=== PATIENT | male | born 1950 | race Caucasian/White ===

== ENCOUNTER 2018-11-01 11:12 | Outpatient (CLI) | payer MEDICARE, BC ==
[2018-11-01 12:14] LABS: BASOPHILS # (AUTO) 0.03 x10^3/uL (0-0.1); BASOPHILS % (AUTO) 0 % (0-1); EOSINOPHILS # (AUTO) 0.24 x10^3/uL (0-0.4); EOSINOPHILS % (AUTO) 4 % (1-7); LYMPHOCYTES # (AUTO) 1.81 x10^3/uL (1-3.4); LYMPHOCYTES % (AUTO) 29 % (22-44); MD NO; MEAN CORPUSCULAR HEMOGLOBIN 33.6 pg (27.5-34.5); MEAN CORPUSCULAR HGB CONC 34.2 g/dL (33.2-36.2); MEAN CORPUSCULAR VOLUME 98.1 fL (81-97); MEAN PLATELET VOLUME 7.5 fL (7.4-10.4); MONOCYTES % (AUTO) 11 % (2-9); NEUTROPHILS # (AUTO) 3.57 x10^3/uL (1.8-6.8); NEUTROPHILS % (AUTO) 56 % (42-75); PLATELET COUNT 260 x10^3/uL (130-400); RED CELL DISTRIBUTION WIDTH 16.5 % (9.4-14.8)
[2018-11-01 12:28] LABS: ALBUMIN 3.8 g/dL (3.4-5.0); CHLORIDE 109 mmol/L (98-107)
[2018-11-01 12:32] LABS: ALANINE AMINOTRANSFERASE 33 U/L (12-78); ALKALINE PHOSPHATASE 54 U/L (45-117); ANION GAP 7 mmol/L (5-15); BILIRUBIN,TOTAL 0.5 mg/dL (0.2-1.0); CALCIUM 9.4 mg/dL (8.5-10.1); CREATININE 0.73 mg/dL (0.7-1.3)
[2018-11-01] MEDS ORDERED: RIVA20TA PO (13:00)
[2018-11-01] MEDS ORDERED: LOSA1TAB19 PO (13:00)
[2018-11-01] MEDS ORDERED: CYAN10005 PO (13:00)
[2018-11-01] MEDS ORDERED: BUPR150T20 PO (13:00)
[2018-11-01] MEDS ORDERED: CPAP (13:00)
[2018-11-01] MEDS ORDERED: ALPR-475 PO (13:00)
[2018-11-01] MEDS ORDERED: UMEC1DIS INH (13:00)
[2018-11-01] MEDS ORDERED: IBUP-11 PO (13:00)
[2018-11-01] MEDS ORDERED: Nebulizer (13:00)
[2018-11-01] MEDS ORDERED: CHOL10003 PO (13:00)
[2018-11-01] MEDS ORDERED: MESA1.2T PO (13:00)
== END 2018-11-01 23:59 | disposition home or self-care (01) ==
LOC: STAR 11:12
PROVIDERS: ATTEND Thoracic Surgery (Cardiothoracic Vascular Surgery)
DX: Z01.818 Encounter for other preprocedural examination (principal); R91.8 Other nonspecific abnormal finding of lung field; R94.31 Abnormal electrocardiogram [ECG] [EKG]
CPT/HCPCS: 36415; 80053; 85025; 93005

== ENCOUNTER 2018-11-07 06:04 | Inpatient (IN) | payer MEDICARE, BC ==
[~2018-11-07] VITALS: Ht 185.4 cm; Wt 126.0 kg
[~2018-11-07 06:04] MED LIST: ALPR-475 PO; BUPR150T20 PO; CHOL10003 PO; CPAP; CYAN10005 PO; IBUP-11 PO; LOSA1TAB19 PO; MESA1.2T PO; Nebulizer; RIVA20TA PO; UMEC1DIS INH
[2018-11-07] MEDS ORDERED: LACTATED RINGERS 1,000 ML IV SCH (06:38)
[2018-11-07] MEDS ORDERED: BUPIVACAINE/PF-EPI 0.5% 1:200K ONE (06:58)
[2018-11-07] MEDS ORDERED: MIDAZOLAM 1 MG/ML, 2ML ONE (07:17)
[2018-11-07] MEDS ORDERED: ROCURONIUM 10MG/ML,5ML ONE ×2 (07:18→09:37)
[2018-11-07] MEDS ORDERED: SUCCINYLCHOLINE 20 MG/ML, 10ML ONE (07:18)
[2018-11-07] MEDS ORDERED: LIDOCAINE 2%, 6 ML JEL.PF.APP MM ONE (07:18)
[2018-11-07] MEDS ORDERED: FENTANYL PF 250 MCG/5ML ONE (07:18)
[2018-11-07] MEDS ORDERED: ONDANSETRON 2MG/ML, 2ML ONE (07:18)
[2018-11-07] MEDS ORDERED: DEXAMETHASONE 4 MG/ML, 1ML ONE (07:18)
[2018-11-07] MEDS ORDERED: SCOPOLAMINE PATCH, 1.5MG PATCH.TD72 TD ONE (07:30)
[2018-11-07] MEDS ORDERED: ACETAMINOPHEN 500 MG TABLET PO ONE (07:30)
[2018-11-07] MEDS ORDERED: GABAPENTIN 300 MG CAPSULE PO ONE (07:30)
[2018-11-07] MEDS ORDERED: PROPOFOL 10 MG/ML, 20ML ONE (07:33)
[2018-11-07] MEDS ORDERED: KETOROLAC 30 MG/1 ML ONE (07:33)
[2018-11-07] MEDS ORDERED: CEFAZOLIN 1,000 MG ONE (07:33)
[2018-11-07] MEDS ORDERED: FENTANYL PF 100 MCG/2ML ONE ×2 (08:11→10:03)
[2018-11-07] MEDS ORDERED: NEOSTIGMINE 1 MG/ML, 10ML ONE (09:38)
[2018-11-07] MEDS ORDERED: GLYCOPYRROLATE 0.2MG/1ML, 5ML ONE (09:38)
[2018-11-07] MEDS: LACTATED RINGERS 1,000 ML IV SCH ×2 (09:52→19:52)
[2018-11-07] MEDS ORDERED: ALBUTEROL SULFATE 2.5 MG/3 ML NPPB PRN (10:00)
[2018-11-07] MEDS ORDERED: HALOPERIDOL 5 MG/ML IV PRN (10:00)
[2018-11-07] MEDS ORDERED: MEPERIDINE/PF 25MG/0.5ML IVPush PRN (10:00)
[2018-11-07] MEDS ORDERED: FAMOTIDINE 20 MG/2 ML IVPush SCH (10:00)
[2018-11-07] MEDS ORDERED: PROMETHAZINE 12.5 MG SUPP PR PRN (10:00)
[2018-11-07] MEDS ORDERED: DIAZEPAM 5 MG/ML, 2ML IVPush PRN (10:00)
[2018-11-07] MEDS ORDERED: ENALAPRILAT 1.25 MG/ML, 2ML IVPush PRN (10:00)
[2018-11-07] MEDS ORDERED: HYDROmorphone 2 MG/ML, 1ML IVPush PRN (10:00)
[2018-11-07] MEDS ORDERED: hydrALAzine 20 MG/ML, 1ML IVPush PRN (10:00)
[2018-11-07] MEDS ORDERED: ONDANSETRON 2MG/ML, 2ML IV PRN (10:00)
[2018-11-07] MEDS: TEMPLATE NON-FORMULARY MED. (Umeclidinium Brm/Vilanterol Tr (Anoro Ellipta 62.5-25 Mcg Inh INH SCH (10:00)
[2018-11-07] MEDS ORDERED: DIPHENHYDRAMINE 50 MG/ML, 1ML IVPush PRN (10:00)
[2018-11-07] MEDS ORDERED: KETOROLAC 30 MG/1 ML IVPush PRN (10:00)
[2018-11-07] MEDS ORDERED: hydrALAzine 20 MG/ML, 1ML IV PRN (10:00)
[2018-11-07] MEDS ORDERED: LORazepam 1MG TABLET PO PRN (10:00)
[2018-11-07] MEDS ORDERED: ONDANSETRON ODT 8 MG PO PRN (10:00)
[2018-11-07] MEDS ORDERED: DIPHENHYDRAMINE 25 MG CAPSULE PO PRN (10:00)
[2018-11-07] MEDS ORDERED: ACETAMINOPHEN 325 MG TABLET PO PRN (10:00)
[2018-11-07] MEDS ORDERED: EPHEDRINE 50 MG/ML, 1ML IVPush PRN (10:00)
[2018-11-07] MEDS ORDERED: LABETALOL 5MG/ML, 20ML IV PRN (10:00)
[2018-11-07] MEDS ORDERED: morphine SULFATE 10 MG/ML, 1ML IVPush PRN (10:00)
[2018-11-07] MEDS ORDERED: PROMETHAZINE 25 MG/ML, 1ML IV PRN (10:00)
[2018-11-07] MEDS ORDERED: MIDAZOLAM 1 MG/ML, 2ML IV PRN (10:00)
[2018-11-07] MEDS ORDERED: OXYcodone 5 MG/5 ML ORAL.SOL UDC ONE ×2 (10:04→10:38)
[2018-11-07] MEDS: FENTANYL PF 100 MCG/2ML IV PRN ×2 (10:06→10:13)
[2018-11-07] MEDS: OXYcodone 5 MG/5 ML ORAL.SOL UDC PO PRN ×2 (10:10→10:39)
[2018-11-07] MEDS ORDERED: morphine SULFATE 10 MG/ML, 1ML ONE (10:21)
[2018-11-07] MEDS: MORPHINE SULFATE 4 MG/ML, 1ML IVPush PRN ×4 (10:23→10:49)
[2018-11-07 11:31] VITALS: BP 141/92
[2018-11-07] MEDS: FAMOTIDINE 20 MG TABLET PO SCH ×2 (11:57→20:57)
[2018-11-07 12:49] VITALS: BP 0/0
[2018-11-07] MEDS: ALBUTEROL SULFATE 2.5 MG/3 ML NPPB SCH ×2 (12:55→21:32)
[2018-11-07] MEDS: HYDROcodone/APAP 5/325 TABLET PO PRN ×3 (14:05→22:44)
[2018-11-07 19:54] VITALS: BP 124/80
[2018-11-07] MEDS: BUPROPION SR 150 MG TABLET PO SCH (20:57)
[2018-11-07] MEDS: BUDESONIDE 0.5 MG/2 ML INHA INH SCH (21:32)
[2018-11-08 00:21] VITALS: BP 130/76
[2018-11-08] MEDS: HYDROcodone/APAP 5/325 TABLET PO PRN ×5 (02:53→20:29)
[2018-11-08] MEDS: ALBUTEROL SULFATE 2.5 MG/3 ML NPPB SCH ×4 (03:00→19:23)
[2018-11-08 04:51] LABS: BASOPHILS # (AUTO) 0.02 x10^3/uL (0-0.1); BASOPHILS % (AUTO) 0 % (0-1); EOSINOPHILS # (AUTO) 0.03 x10^3/uL (0-0.4); EOSINOPHILS % (AUTO) 0 % (1-7); LYMPHOCYTES % (AUTO) 17 % (22-44); MD NO; MEAN CORPUSCULAR HEMOGLOBIN 33.4 pg (27.5-34.5); MEAN CORPUSCULAR HGB CONC 33.6 g/dL (33.2-36.2); MEAN CORPUSCULAR VOLUME 99.4 fL (81-97); MEAN PLATELET VOLUME 7.7 fL (7.4-10.4); MONOCYTES # (AUTO) 0.91 x10^3/uL (0.2-0.8); MONOCYTES % (AUTO) 10 % (2-9); NEUTROPHILS # (AUTO) 7.02 x10^3/uL (1.8-6.8); NEUTROPHILS % (AUTO) 73 % (42-75); PLATELET COUNT 218 x10^3/uL (130-400); RED CELL DISTRIBUTION WIDTH 15.6 % (9.4-14.8)
[2018-11-08 05:04] LABS: ANION GAP 7 mmol/L (5-15); CALCIUM 8.5 mg/dL (8.5-10.1); CHLORIDE 106 mmol/L (98-107)
[2018-11-08 05:07] LABS: CREATININE 0.63 mg/dL (0.7-1.3)
[2018-11-08] MEDS: BUPROPION SR 150 MG TABLET PO SCH ×2 (07:59→22:06)
[2018-11-08] MEDS: MESALAMINE 400 MG CAPSULE.DR PO SCH (07:59)
[2018-11-08] MEDS: FAMOTIDINE 20 MG TABLET PO SCH ×2 (07:59→22:06)
[2018-11-08] MEDS: ENOXAPARIN 60 MG/0.6 ML SQ SCH ×2 (08:00→22:07)
[2018-11-08] MEDS: TEMPLATE NON-FORMULARY MED. (Umeclidinium Brm/Vilanterol Tr (Anoro Ellipta 62.5-25 Mcg Inh INH SCH (08:00)
[2018-11-08 08:06] VITALS: BP 134/84
[2018-11-08] MEDS: BUDESONIDE 0.5 MG/2 ML INHA INH SCH ×2 (08:39→19:23)
[2018-11-08 12:31] VITALS: BP 114/69
[2018-11-08 20:23] VITALS: BP 124/86
[2018-11-09] MEDS: HYDROcodone/APAP 5/325 TABLET PO PRN ×3 (00:31→08:28)
[2018-11-09] MEDS: ALBUTEROL SULFATE 2.5 MG/3 ML NPPB SCH ×2 (02:00→09:25)
[2018-11-09 02:03] VITALS: BP 127/71
[2018-11-09 07:34] VITALS: BP 138/88
[2018-11-09] MEDS: BUPROPION SR 150 MG TABLET PO SCH (08:28)
[2018-11-09] MEDS: MESALAMINE 400 MG CAPSULE.DR PO SCH (08:28)
[2018-11-09] MEDS: FAMOTIDINE 20 MG TABLET PO SCH (08:28)
[2018-11-09] MEDS: ENOXAPARIN 60 MG/0.6 ML SQ SCH (08:28)
[2018-11-09] MEDS: TEMPLATE NON-FORMULARY MED. (Umeclidinium Brm/Vilanterol Tr (Anoro Ellipta 62.5-25 Mcg Inh INH SCH (08:29)
[2018-11-09] MEDS ORDERED: HYDR-3240 PO (08:55)
[2018-11-09] MEDS: BUDESONIDE 0.5 MG/2 ML INHA INH SCH (09:25)
[2018-11-09 10:02] VITALS: BP_SYST 150; BP_SYST 153; BP_DIAS 92; BP_DIAS 97
== END 2018-11-09 10:30 | disposition home or self-care (01) | DRG 164 ==
LOC: ORIP 06:04 → 4NOR 11:26
PROVIDERS: ADMIT Thoracic Surgery (Cardiothoracic Vascular Surgery); ATTEND Thoracic Surgery (Cardiothoracic Vascular Surgery)
PROC: 07B74ZZ Excision of Thorax Lymphatic, Percutaneous Endoscopic Approach (ICD-10-PCS; 2018-11-07)
PROC: 03HY32Z Insertion of Monitoring Device into Upper Artery, Percutaneous Approach (ICD-10-PCS; 2018-11-07)
PROC: 0BTC4ZZ Resection of Right Upper Lung Lobe, Percutaneous Endoscopic Approach (ICD-10-PCS; principal; 2018-11-07 07:30)
DX: C34.11 Malignant neoplasm of upper lobe, right bronchus or lung (principal); C77.1 Secondary and unspecified malignant neoplasm of intrathoracic lymph nodes; J43.9 Emphysema, unspecified; F41.9 Anxiety disorder, unspecified; F32.9 Major depressive disorder, single episode, unspecified; G62.9 Polyneuropathy, unspecified; M19.90 Unspecified osteoarthritis, unspecified site; I10 Essential (primary) hypertension; G47.30 Sleep apnea, unspecified; Z90.49 Acquired absence of other specified parts of digestive tract; Z87.891 Personal history of nicotine dependence; Z98.52 Vasectomy status
CPT/HCPCS: 36415; 71045; 80048; 85025; 86850; 86900; 86923; 88305; 88309; 94640; C1729; G0378; J0690; J1100; J1650; J1885; J2250; J2405; J2704; J2710; J3010; J7613; J7626; J0330; J2270

== ENCOUNTER 2019-11-20 06:51 | Inpatient (IN) | payer MEDICARE, BC ==
[2019-11-13 12:49] VITALS: BP 131/87
[~2019-11-20] VITALS: Ht 185.4 cm; Wt 130.0 kg
[~2019-11-20 06:51] MED LIST changes: -ALPR-475 PO; +ALPR0.5T7 PO; +ATOR20TA37 PO; -BUPR150T20 PO; +BUPR150T28 PO; +CYAN-27 PO; -CYAN10005 PO; +HYDR-3240 PO; +TIOT4MIS3 INH
[2019-11-20] MEDS ORDERED: BUPIVACAINE/PF-EPI 0.5% 1:200K ONE (06:53)
[2019-11-20] MEDS ORDERED: CHLORHEXIDINE 15 ML UDC MM ONE (07:30)
[2019-11-20] MEDS ORDERED: LACTATED RINGERS 1,000 ML IV SCH (07:30)
[2019-11-20 07:54] LABS: BASOPHILS # (AUTO) 0.03 x10^3/uL (0-0.1); BASOPHILS % (AUTO) 0 % (0-1); EOSINOPHILS % (AUTO) 2 % (1-7); LYMPHOCYTES # (AUTO) 1.93 x10^3/uL (1-3.4); LYMPHOCYTES % (AUTO) 22 % (22-44); MD NO; MEAN CORPUSCULAR HEMOGLOBIN 31.9 pg (27.5-34.5); MEAN CORPUSCULAR HGB CONC 33.6 g/dL (33.2-36.2); MEAN CORPUSCULAR VOLUME 95.1 fL (81-97); MEAN PLATELET VOLUME 7.9 fL (7.4-10.4); MONOCYTES % (AUTO) 8 % (2-9); NEUTROPHILS % (AUTO) 67 % (42-75); PLATELET COUNT 207 x10^3/uL (130-400); RED CELL DISTRIBUTION WIDTH 13.7 % (9.4-14.8)
[2019-11-20 08:02] LABS: ALANINE AMINOTRANSFERASE 34 U/L (12-78); ALBUMIN 3.8 g/dL (3.4-5.0); ANION GAP 3 mmol/L (5-15); CHLORIDE 110 mmol/L (98-107); CREATININE 0.74 mg/dL (0.7-1.3)
[2019-11-20 08:04] LABS: ALKALINE PHOSPHATASE 65 U/L (45-117); TOTAL PROTEIN 7.4 g/dL (6.4-8.2)
[2019-11-20] MEDS ORDERED: PROPOFOL 50 ML ONE (08:39)
[2019-11-20] MEDS ORDERED: FENTANYL PF 250 MCG/5ML ONE ×2 (08:39→09:22)
[2019-11-20] MEDS ORDERED: MIDAZOLAM 1 MG/ML, 2ML ONE (08:39)
[2019-11-20] MEDS ORDERED: ONDANSETRON 2MG/ML, 2ML ONE (08:52)
[2019-11-20] MEDS ORDERED: SUCCINYLCHOLINE 20 MG/ML, 10ML ONE (08:52)
[2019-11-20] MEDS ORDERED: CEFAZOLIN 1,000 MG ONE (08:52)
[2019-11-20] MEDS ORDERED: DEXAMETHASONE 4 MG/ML, 1ML ONE ×2 (09:23)
[2019-11-20] MEDS ORDERED: DIAZEPAM 5 MG/ML, 2ML IVPush PRN (10:00)
[2019-11-20] MEDS ORDERED: ONDANSETRON 2MG/ML, 2ML IVPush PRN ×2 (10:00→11:00)
[2019-11-20] MEDS ORDERED: PROMETHAZINE 25 MG/ML, 1ML IVPush PRN (10:00)
[2019-11-20] MEDS ORDERED: LABETALOL 5MG/ML, 20ML IV PRN (10:00)
[2019-11-20] MEDS ORDERED: MIDAZOLAM 1 MG/ML, 2ML IV PRN (10:00)
[2019-11-20] MEDS ORDERED: MEPERIDINE/PF 25MG/0.5ML IVPush PRN (10:00)
[2019-11-20] MEDS ORDERED: ALBUTEROL/IPRATROPIUM 2.5MG/0.5MG, 3 ML NPPB PRN (10:00)
[2019-11-20] MEDS ORDERED: DIPHENHYDRAMINE 50 MG/ML, 1ML IVPush PRN ×2 (10:00→11:00)
[2019-11-20] MEDS ORDERED: OXYcodone 5 MG/5 ML ORAL.SOL UDC PO PRN (10:00)
[2019-11-20] MEDS ORDERED: EPHEDRINE 50 MG/ML, 1ML IM PRN (10:00)
[2019-11-20] MEDS ORDERED: EPHEDRINE 50 MG/ML, 1ML IVPush PRN (10:00)
[2019-11-20] MEDS ORDERED: ROCURONIUM 10MG/ML,5ML ONE (10:27)
[2019-11-20] MEDS ORDERED: KETOROLAC 30 MG/1 ML ONE (10:27)
[2019-11-20] MEDS ORDERED: LORazepam 0.5MG TABLET PO PRN (11:00)
[2019-11-20] MEDS ORDERED: hydrALAzine 20 MG/ML, 1ML IVPush PRN (11:00)
[2019-11-20] MEDS ORDERED: ENALAPRILAT 1.25 MG/ML, 2ML IVPush PRN (11:00)
[2019-11-20] MEDS ORDERED: LORazepam 2 MG/ML, 1ML IVPush PRN (11:00)
[2019-11-20] MEDS ORDERED: DIPHENHYDRAMINE 25 MG CAPSULE PO PRN (11:00)
[2019-11-20] MEDS: FENTANYL PF 100 MCG/2ML IV PRN ×2 (11:26→11:36)
[2019-11-20] MEDS ORDERED: FENTANYL PF 100 MCG/2ML ONE (11:27)
[2019-11-20] MEDS ORDERED: OXYcodone 5 MG/5 ML ORAL.SOL UDC ONE (11:27)
[2019-11-20] MEDS: HYDROmorphone 1 MG/ML, 1ML INJ IVPush PRN ×2 (11:38→11:55)
[2019-11-20] MEDS ORDERED: HYDROmorphone 1 MG/ML, 1ML INJ ONE (11:39)
[2019-11-20] MEDS: HYDROmorphone PCA 30 MG/30 ML IVPush PRN (11:59)
[2019-11-20] MEDS ORDERED: FAMOTIDINE 20 MG TABLET PO SCH (16:00)
[2019-11-20] MEDS: FAMOTIDINE 20 MG/2 ML IVPush SCH ×2 (16:39→23:32)
[2019-11-20 18:24] VITALS: BP 114/76
[2019-11-21 00:27] VITALS: BP 120/75
[2019-11-21] MEDS: LACTATED RINGERS 1,000 ML IV SCH ×2 (01:00→11:00)
[2019-11-21 03:35] VITALS: BP 116/76
[2019-11-21] MEDS: KETOROLAC 30 MG/1 ML IVPush PRN ×3 (05:02→18:04)
[2019-11-21 05:21] LABS: BASOPHILS % (AUTO) 0 % (0-1); EOSINOPHILS # (AUTO) 0.01 x10^3/uL (0-0.4); EOSINOPHILS % (AUTO) 0 % (1-7); LYMPHOCYTES # (AUTO) 1.54 x10^3/uL (1-3.4); LYMPHOCYTES % (AUTO) 11 % (22-44); MD NO; MEAN CORPUSCULAR HEMOGLOBIN 31.7 pg (27.5-34.5); MEAN CORPUSCULAR HGB CONC 32.7 g/dL (33.2-36.2); MEAN CORPUSCULAR VOLUME 96.7 fL (81-97); MEAN PLATELET VOLUME 8.1 fL (7.4-10.4); MONOCYTES # (AUTO) 1.23 x10^3/uL (0.2-0.8); MONOCYTES % (AUTO) 9 % (2-9); NEUTROPHILS # (AUTO) 11.59 x10^3/uL (1.8-6.8); NEUTROPHILS % (AUTO) 81 % (42-75); PLATELET COUNT 194 x10^3/uL (130-400); RED BLOOD COUNT 4.79 x10^6/uL (4.38-5.82); RED CELL DISTRIBUTION WIDTH 13.7 % (9.4-14.8)
[2019-11-21 05:28] LABS: ANION GAP 3 mmol/L (5-15); CALCIUM 8.5 mg/dL (8.5-10.1); CHLORIDE 105 mmol/L (98-107)
[2019-11-21 05:29] LABS: CREATININE 0.96 mg/dL (0.7-1.3)
[2019-11-21 06:24] VITALS: BP 95/58
[2019-11-21] MEDS: MESALAMINE 400 MG CAPSULE.DR PO SCH (08:27)
[2019-11-21] MEDS: FAMOTIDINE 20 MG/2 ML IVPush SCH ×2 (08:28→20:41)
[2019-11-21] MEDS: ENOXAPARIN 40 MG/0.4 ML SQ SCH (08:28)
[2019-11-21] MEDS ORDERED: BISACODYL 10 MG SUPP PR PRN (08:30)
[2019-11-21] MEDS ORDERED: LACTULOSE 20 GM/30 ML UDC PO PRN (08:30)
[2019-11-21] MEDS: DOCUSATE 100 MG CAPSULE PO SCH (08:58)
[2019-11-21] MEDS: DOCUSATE 50 MG/5 ML, 10ML UDC NG SCH (09:00)
[2019-11-21 12:15] VITALS: BP 120/81
[2019-11-21] MEDS: HYDROmorphone PCA 30 MG/30 ML IVPush PRN (14:27)
[2019-11-21 20:35] VITALS: BP 111/71
[2019-11-21] MEDS: SENNA/DOCUSATE TABLET PO SCH (20:40)
[2019-11-21] MEDS: ATORVASTATIN 20 MG TABLET PO SCH (20:40)
[2019-11-22 01:56] VITALS: BP 120/74
[2019-11-22] MEDS: KETOROLAC 30 MG/1 ML IVPush PRN ×3 (05:08→18:38)
[2019-11-22 06:51] VITALS: BP 100/63
[2019-11-22] MEDS: DOCUSATE 50 MG/5 ML, 10ML UDC NG SCH (09:00)
[2019-11-22] MEDS: MESALAMINE 400 MG CAPSULE.DR PO SCH (09:27)
[2019-11-22] MEDS: DOCUSATE 100 MG CAPSULE PO SCH (09:27)
[2019-11-22] MEDS: ENOXAPARIN 40 MG/0.4 ML SQ SCH (09:27)
[2019-11-22] MEDS: FAMOTIDINE 20 MG/2 ML IVPush SCH ×2 (09:27→20:03)
[2019-11-22] MEDS: HYDROmorphone 2MG TABLET PO PRN ×4 (11:27→20:04)
[2019-11-22 12:14] VITALS: BP 119/69
[2019-11-22] MEDS: HYDROmorphone 1 MG/ML, 1ML INJ IV PRN ×2 (14:53→16:53)
[2019-11-22 18:12] VITALS: BP 113/73
[2019-11-22] MEDS: ATORVASTATIN 20 MG TABLET PO SCH (20:03)
[2019-11-22] MEDS: SENNA/DOCUSATE TABLET PO SCH (20:04)
[2019-11-23 00:17] VITALS: BP 119/71
[2019-11-23] MEDS: HYDROmorphone 2MG TABLET PO PRN ×3 (00:21→09:15)
[2019-11-23] MEDS: KETOROLAC 30 MG/1 ML IVPush PRN ×3 (05:41→20:09)
[2019-11-23 06:28] VITALS: BP 106/70
[2019-11-23] MEDS: DOCUSATE 50 MG/5 ML, 10ML UDC NG SCH (09:00)
[2019-11-23] MEDS: FAMOTIDINE 20 MG/2 ML IVPush SCH ×2 (09:15→20:09)
[2019-11-23] MEDS: ENOXAPARIN 40 MG/0.4 ML SQ SCH (09:15)
[2019-11-23] MEDS: MESALAMINE 400 MG CAPSULE.DR PO SCH (09:16)
[2019-11-23] MEDS: DOCUSATE 100 MG CAPSULE PO SCH (09:16)
[2019-11-23] MEDS ORDERED: OXYC5CAP2 PO (11:46)
[2019-11-23] MEDS: OXYcodone IR 5MG TABLET PO PRN ×3 (14:28→23:16)
[2019-11-23 14:30] VITALS: BP 120/79
[2019-11-23 19:35] VITALS: BP 126/62
[2019-11-23] MEDS: ATORVASTATIN 20 MG TABLET PO SCH (20:09)
[2019-11-23] MEDS: FAMOTIDINE 20 MG TABLET PO SCH ×2 (21:00→21:06)
[2019-11-23] MEDS: ACETAMINOPHEN 325 MG TABLET PO PRN (21:06)
[2019-11-23] MEDS: IBUPROFEN 200 MG TABLET PO PRN (22:51)
[2019-11-24 01:53] VITALS: BP 116/66
[2019-11-24] MEDS: OXYcodone IR 5MG TABLET PO PRN ×3 (05:07→14:38)
[2019-11-24] MEDS: ACETAMINOPHEN 325 MG TABLET PO PRN (05:07)
[2019-11-24 08:30] VITALS: BP 107/67
[2019-11-24] MEDS: DOCUSATE 50 MG/5 ML, 10ML UDC NG SCH (09:00)
[2019-11-24] MEDS: FAMOTIDINE 20 MG TABLET PO SCH (09:10)
[2019-11-24] MEDS: DOCUSATE 100 MG CAPSULE PO SCH (09:10)
[2019-11-24] MEDS: IBUPROFEN 200 MG TABLET PO PRN (09:11)
[2019-11-24] MEDS: MESALAMINE 400 MG CAPSULE.DR PO SCH (09:11)
[2019-11-24] MEDS: ENOXAPARIN 40 MG/0.4 ML SQ SCH (09:11)
[2019-11-24 12:23] VITALS: BP 124/79
== END 2019-11-24 15:00 | disposition home or self-care (01) | DRG 167 ==
LOC: ORIP 06:51 → 4NE 15:25 → DCLOUNGE 11-24 14:45
PROVIDERS: ADMIT Thoracic Surgery (Cardiothoracic Vascular Surgery); ATTEND Thoracic Surgery (Cardiothoracic Vascular Surgery)
PROC: 07B70ZZ Excision of Thorax Lymphatic, Open Approach (ICD-10-PCS; 2019-11-20)
PROC: 0WBC0ZX Excision of Mediastinum, Open Approach, Diagnostic (ICD-10-PCS; principal; 2019-11-20 09:30)
DX: C78.39 Secondary malignant neoplasm of other respiratory organs (principal); J96.11 Chronic respiratory failure with hypoxia; R93.89 Abnormal findings on diagnostic imaging of other specified body structures; Z85.118 Personal history of other malignant neoplasm of bronchus and lung
CPT/HCPCS: 36415; 71045; 80048; 80053; 85025; 86850; 86900; 86923; 88305; 93005; C1729; G0378; J0690; J1100; J1170; J1650; J1885; J2250; J2405; J2704; J3010; J0330; J2060; J3490; J7120; Q0163; U0001-CS